=== PATIENT | male | born 1990 | race Caucasian/White ===

== ENCOUNTER 2017-08-22 17:56 | Emergency (ER) | payer MEDICAID ==
--- NOTE | 2017-08-22 18:41 | ED Physician Chart ---
ED Chief Complaint/HPI - Patient Information Date Seen:: 08/22/17 Time Seen:: 18:25 Chief Complaint:: weight loss or rectal bleeding History of Present Illness:: Patient has had at least a 20 pound weight loss over the last 1 month. He denies abdominal pain. He states he is eating well. For the last 2 weeks patient's had slight blood on the toilet paper 2-3 times a week when he wipes after bowel movement. Patient's had hard stools for 3 months and has been having 2-3 bowel movements per week. Sometimes bowel movements are painful. Allergies:: Allergies Allergy/AdvReac Type Severity Reaction Status Date / Time No Known Allergies Allergy Verified 08/22/17 18:19 Vitals:: Vital Signs - 8 hr 08/22/17 18:11 Temp 97.9 F HR 97 RR 16 BP 97/56 O2 Sat % 97 Historian:: Patient Review:: Nurse's Note Reviewed ED Review of Systems - Review of Systems General/Constitutional: No fever, No chills, No weight loss, No weakness, No diaphoresis, No edema, No loss of appetite, Other (weight loss) Skin: No skin lesions, No rash, No bruising Head: No headache, No light-headedness Eyes: No loss of vision, No pain, No diplopia ENT: No earache, No nasal drainage, No sore throat, No tinnitus Neck: No neck pain, No swelling, No thyromegaly, No stiffness, No mass noted Cardio Vascular: No chest pain, No palpitations, No PND, No orthopnea, No edema Pulmonary: No SOB, No cough, No sputum, No wheezing GI: No nausea, No vomiting, No diarrhea, No pain, No melena, Hematochezia, No constipation, No hematemesis G/U: No dysuria, No frequency, No hematuria Musculoskeletal: No bone or joint pain, No back pain, No muscle pain Endocrine: No polyuria, No polydipsia Psychiatric: No prior psych history, No depression, No anxiety, No suicidal ideation Hematopoietic: No bruising, No lymphadenopathy Allergic/Immuno: No urticaria, No angioedema Neurological: No syncope, No focal symptoms, No weakness, No paresthesia, No headache, No seizure, No dizziness, No confusion, No vertigo ED Past Medical History - Past Medical History Past Medical History: Other (schizophrenia and psychosis) Family History: None Social History: Non Smoker, No Alcohol Surgical History: None Psychiatricy History: Schizophrenia, Other (psychosis) Medication: Reviewed ED Physical Exam - Physical Examination General/Constitutional: Well-developed, well-nourished, Alert, No distress Head: Atraumatic Eyes: Lids, conjuctiva normal, PERRL Skin: Nl inspection, No rash, No skin lesions, No ecchymosis ENMT: External ears, nose nl, TM canals nl, Nasal exam nl, Lips, teeth, gums nl , Oropharynx nl, Tonsils nl Neck: No nuchal rigidity Respiratory: Nl effort/Exclusion, Clear to Auscultation Cardio Vascular: RRR, No murmur, gallop, rubs, NL S1 S2 GI: No tenderness/rebounding/guarding, No organomegaly, No hernia, Normal BS's, Nondistended, Rectum exam nl Other GI comments:: Rectal exam: No masses; brown stool in examining glove which was Hemoccult- positive : No CVA tenderness Extremities: Normal digits & nails Neuro/Psych: No focal deficits Misc: Normal back ED Labs/Radiology/EKG Results - Lab Results Results: Laboratory Results - last 24 hr 08/22/17 08/22/17 18:45 18:45 WBC 8.6 RBC 4.49 Hgb 13.5 Hct 39.5 L MCV 87.9 MCH 30.0 MCHC Differential 34.2 RDW 13.1 Plt Count 154 MPV 9.0 Neutrophils % 58.4 Lymphocytes % 31.0 Monocytes % 8.1 Eosinophils % 1.5 Basophils % 1.0 Sodium 138 Potassium 3.8 Chloride 103 Carbon Dioxide 28.3 Anion Gap 10.5 BUN 15 Creatinine 1.1 Est GFR ( Amer) > 60.0 Est GFR (Non-Af Amer) > 60.0 BUN/Creatinine Ratio 13.6 Glucose 108 H Calcium 9.3 Magnesium 1.9 ED Assessment - Assessment General Assessment: Patient most likely has internal hemorrhoids. I suggested Metamucil and prescribed Anusol HC suppositories #12 to use per directions. Also suggested his primary care physician refer him to a deburr technician for a possible colonoscopy. Patient's lab tests are normal. It is uncertain why the patient has lost more than 20 pounds over the last 1 month. ED Septic Shock - . Is Septic Shock (SBP<90, OR Lactate>4 mmol\L) present?: No - <6hrs of presentation: Vital Signs: Vital Signs - 8 hr 08/22/17 18:11 Temp 97.9 F HR 97 RR 16 BP 97/56 O2 Sat % 97 ED Reassessment (Disposition) - Reassessment Reassessment Condition:: Unchanged - Diagnosis Diagnosis:: Internal hemorrhoids; constipation; slight rectal bleeding - Aftercare/Follow up Instructions Aftercare/Follow-Up Instructions:: Refer to Discharge Instructions Medication Prescribed:: Anusol HC suppositories #12 to use per directions - Patient Disposition Discharge/Transfer:: Home Condition at Disposition:: Stable, Unchanged
[2017-08-22 18:53] LABS: % EOSINOPHILS 1.5 % (0.0-5.0); % MONOCYTES 8.1 % (2.0-10.0); % NEUTROPHILS 58.4 % (40.0-80.0); BASOPHILE ABSOLUTE 0.1 Th/cumm (0-0.2); EOSINOPHILE ABSOLUTE 0.1 Th/cmm (0.1-0.4); HEMATOCRIT 39.5 % (41.0-60); HEMOGLOBIN 13.5 gm/dL (12-16); LYMPHOCYTE ABSOLUTE 2.7 Th/cmm (1.5-3.0); MEAN CELL VOLUME 87.9 fl (80-99); MEAN CORPUSCULAR HGB CONC 34.2 pg (28.0-36.0); MONOCYTE ABSOLUTE 0.7 Th/cmm (0.3-1.0); PLATELET COUNT 154 Th/cmm (150-400); RED BLOOD COUNT 4.49 Mil/cmm (4.30-5.70); RED CELL DISTRIBUTION WIDTH 13.1 % (11.5-20.0); WHITE BLOOD COUNT 8.6 Th/cmm (4.8-10.8)
[2017-08-22 19:16] LABS: ANION GAP 10.5 (7.0-16.0); BUN - UREA NITROGEN 15 mg/dL (7-25); CALCIUM SERUM 9.3 mg/dL (8.6-10.3); CARBON DIOXIDE 28.3 mEq/L (21.0-31.0); CHLORIDE 103 mEq/L (98-107); CREATININE - SERUM 1.1 mg/dL (0.7-1.3); GFR AFRICAN-AMERICAN > 60.0 ml/min (>90); GFR NON AFRICAN-AMERICAN > 60.0 ml/min; GLUCOSE 108 mg/dL (70-105); MAGNESIUM 1.9 mg/dL (1.9-2.7); POTASSIUM SERUM 3.8 mEq/L (3.5-5.1); SODIUM SERUM 138 mEq/L (136-145)
== END 2017-08-22 19:45 | disposition home or self-care (01) ==
LOC: ER 17:56
DX: K64.8 Other hemorrhoids (principal); K59.00 Constipation, unspecified
CPT/HCPCS: 36415-UA; 80048-TC; 83735-TC; 85025-TC; Z7502